=== PATIENT | female | born 1985 | race Caucasian/White ===

== ENCOUNTER 2019-02-04 21:26 | Emergency (ER) | payer SELFPAY, OTHER, MEDICAID ==
[2019-02-04] MEDS ORDERED: ADENOSINE 6 MG INJ IV (21:40)
[2019-02-04] MEDS: DILTIAZEM 25 MG INJ IV (21:49)
== END 2019-02-04 23:23 | disposition home or self-care (01) ==
LOC: E/R 21:26
DX: I47.1 Supraventricular tachycardia (principal)
CPT/HCPCS: 93005; 96374; 99284-25